=== PATIENT | male | born 1990 | race Caucasian/White ===

== ENCOUNTER 2017-12-12 00:40 | Inpatient (IN) | payer OTHER ==
[2017-12-12] MEDS ORDERED: Sodium Chloride 0.9% 1,000 ML IV STA (01:00)
[2017-12-12] MEDS ORDERED: Sodium Chloride 0.9% 10 ML Syringe FLUSH PRN (01:00)
[2017-12-12] MEDS ORDERED: Ondansetron 4 MG/2 ML SDV IVPUSH ONE (01:01)
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
[2017-12-12] MEDS ORDERED: HYDROmorphone 0.5 MG/0.5 ML SYRINGE IVPUSH ONE (03:48)
[2017-12-12] MEDS ORDERED: Levofloxacin/Dextrose 5%-Water 500 MG in Premix Bag 1 BAG IV ONE (04:15)
[2017-12-12] MEDS ORDERED: metroNIDAZOLE/Normal Saline 500 MG in Premix Bag 1 BAG IV ONE (04:16)
[2017-12-12] MEDS ORDERED: Sodium Chloride 0.9% 1,000 ML IV SCH (04:45)
[2017-12-12] MEDS ORDERED: hydrALAZINE 20 MG/ML SDV IVPUSH PRN (05:48)
[2017-12-12] MEDS ORDERED: Acetaminophen 325 MG Tab PO PRN (05:48)
[2017-12-12] MEDS ORDERED: Ondansetron 4 MG/2 ML SDV IVPUSH PRN (05:48)
[2017-12-12] MEDS ORDERED: Bisacodyl 5 MG Tab PO PRN (07:28)
[2017-12-12] MEDS ORDERED: Docusate Sodium 100 MG Cap PO PRN (07:28)
[2017-12-12] MEDS ORDERED: Ketorolac 30 MG/ML SDV IV PRN (07:28)
[2017-12-12] MEDS ORDERED: Polyethylene Glycol 3350 Powder 17 GM Packet PO PRN (07:28)
[2017-12-12] MEDS ORDERED: Magnesium Hydroxide 400 MG/5 ML Susp 30 ML Cup PO PRN (07:28)
--- NOTE | 2017-12-12 07:37 | CT ---
CT abdomen and pelvis Technique: Multiple axial sections were obtained from above the dome of the diaphragm inferiorly through the pubic symphysis. Intravenous and oral contrast was utilized. Delayed images were also obtained through the pelvis. Comparison: Prior CT abdomen and pelvis exam of 08/23/16. Findings: Dilated fluid-filled loops of mid and distal small bowel are seen. Areas of prominent wall thickening are seen within skip lesions within the small bowel. Terminal ileum appears within normal limits. There is some fecalized small bowel material within the distal ileum. Transition point of the small bowel dilatation is within the right lower abdomen. Visualized lung bases show nothing acute. Liver shows no focal abnormality. Spleen appears within normal limits. Adrenal glands show no nodule. Pancreas is within normal limits. Gallbladder contains no shadowing gallstones. Kidneys show symmetric contrast enhancement without hydronephrosis or mass. Aorta shows no aneurysmal dilatation. No retroperitoneal adenopathy is seen. No findings of appendicitis are seen. No pelvic mass or adenopathy is seen. Small amount of fluid seen within the pelvis most likely reactive from the small bowel process. Impression: 1. Findings compatible with distal small bowel obstruction with transition point within the right lower abdomen. Areas of bowel wall thickening seen within skip lesions within the small bowel. Findings slightly changed from previous CT exam. Bowel wall thickening could represent infectious enteritis although Crohn's disease is highly possible. 2. Small amount of fluid within the pelvis most likely reactive from the small bowel process. Diagnostic code #3 I agree with preliminary report from [facility], finalized at 12/12/17, 4:28 AM Central Time
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
[2017-12-12] MEDS ORDERED: Pantoprazole 40 MG Vial IVPUSH SCH (09:00)
[2017-12-12] MEDS ORDERED: predniSONE 20 MG Tab PO SCH (11:00)
[2017-12-12] MEDS: metroNIDAZOLE/Normal Saline 500 MG in Premix Bag 1 BAG IV SCH ×2 (12:47→20:32)
[2017-12-12] MEDS: methylPREDNISolone Sodium Succinate 40 MG/1 ML SDV IVPUSH SCH ×2 (16:00→20:30)
[2017-12-12] MEDS: Famotidine 20 MG/2 ML SDV IVPUSH SCH (20:31)
[2017-12-13] MEDS: methylPREDNISolone Sodium Succinate 40 MG/1 ML SDV IVPUSH SCH (03:03)
[2017-12-13] MEDS ORDERED: Levofloxacin/Dextrose 5%-Water 750 MG in Premix Bag 1 BAG IV SCH (04:30)
[2017-12-13] MEDS: metroNIDAZOLE/Normal Saline 500 MG in Premix Bag 1 BAG IV SCH (05:46)
[2017-12-13] MEDS: Famotidine 20 MG/2 ML SDV IVPUSH SCH (08:09)
[2017-12-13] MEDS ORDERED: predniSONE 20 MG Tab PO SCH (09:00)
--- NOTE | 2017-12-13 10:57 | PCM.DCSUM1 ---
Discharge Summary - Hospital Course HPI Initial Comments: The patient presents with periumbilical pain that started last night. He also has nausea but no vomiting. He has no dysuria or diarrhea. Over a year ago in August he was seen here and diagnosed with a small bowel obstruction. He was admitted to Dr Wiley and he did not have to have surgery. He has never had surgery before. He still has his appendix and gallbladder. He has no fever, chills, cough, chest pain or shortness of breath. The patient did have a bowel movement yesterday. - Discharge Data Discharge Date: 12/13/17 (ADMIT 12/12/17) Discharge Disposition: Home, Self-Care 01 Condition: Good - Discharge Diagnosis/Problem(s) (1) Abdominal pain SNOMED Code(s): 13991182 ICD Code: R10.9 - UNSPECIFIED ABDOMINAL PAIN Status: Acute Priority: High Current Visit: Yes Qualifiers: Abdominal location: periumbilical Qualified Code(s): R10.33 - Periumbilical pain (2) Enteritis SNOMED Code(s): 60912266 ICD Code: K52.9 - NONINFECTIVE GASTROENTERITIS AND COLITIS, UNSPECIFIED Status: Acute Priority: High Current Visit: Yes (3) Partial small bowel obstruction SNOMED Code(s): 619917223 ICD Code: K56.600 - PARTIAL INTESTINAL OBSTRUCTION, UNSPECIFIED TO CAUSE Status: Acute Priority: Medium Current Visit: Yes - Patient Summary/Data Operative Procedure(s) Performed: none Complications: none Consults: Consultations 12/12/17 09:47 Consult to Case Management [CONS] Routine Labs Pending at D/C: none Recommended Follow-up Testing/Procedures: F/u with PCP, Riaz Chawla, in 7-10 days. F/U with GI specialist for colonoscopy to r/o Inflammatory enteritis (IBD) vs. Infectious enteritis (viral) Planned Operative Procedure(s) after DC: none Hospital Course: I/P: Acute: Enteritis: Crohn's vs Inflammatory or Infectious enteritis -Risk factor: h/o Ileitis (08/23/16) -CT abdomen and pelvis: Severe enteritis, areas of bowel wall thickening seen within skip lesions within the small bowel -WBC 12.26-->11.57, Mg 1.7, CRP <0.2 -Levoquin, Flagyl started in ED--> D/C -IVF, NPO--> advance diet as tolerated -Pain management with Tylenol and Toradol -Nausea management with Zofran -Recommend GI specialist after D/C Partial SBO -Most likely 2/2 above -CT abdomen and pelvis: partial SBO with transition point in right lower quadrant -General surgeon Dr. Wiley consulted in the ED--> Surgery not recommended at this time -IVF, NPO--> advance diet as tolerated Chronic: none Plan: Transfered to Med-Surg He remains stable and continues to improve clinically Other orders as indicated above Routine AM labs Ambulated at tolerated DVT prophylaxis: MIKHAIL hose GI prophylaxis: Protonix Recommend seeing a GI specialist after D/C D/C today pending no problems with regular diet at lunch Code Status: Full code; New PCP Riaz Chawla Dominguez has recovered quite well. He had multiple tests done. So far all have been negative except for CT abdomen and pelvis: Severe enteritis, areas of bowel wall thickening seen within skip lesions within the small bowel and partial SBO with transition point in right lower quadrant. This has since resolved. He should follow-up with his primary care provider in 7-10 days. He also needs to follow up with GI specialist for a colonoscopy to r/o Infectious enteritis (viral) vs. Inflammatory enteritis (IBD). He was not discharged home on any new medications. He will be discharged home today. - Patient Instructions Diet: Usual Diet as Tolerated Activity: As Tolerated Driving: May Drive Today Showering/Bathing: May Shower Notify Provider of: Fever, Increased Pain, Nausea and/or Vomiting - Discharge Plan Home Medications: Home Meds . [No Known Home Meds] 12/12/17 [History] Patient Handouts: Small Bowel Obstruction, [id number], Abdominal Pain, Adult , [id number] Referrals: Riaz Regan MD [Physician] - - Discharge Summary/Plan Comment DC Time >30 min.: Yes (40) - General Info Date of Service: 12/13/17 Admission Dx/Problem (Free Text: Admission Diagnosis/Problem Admission Diagnosis/Problem Enteritis Subjective Update: In to see Dominguez today. He is lying in bed visiting with and 4 children. Overall he is doing quite well. He has no complaints. He has been sleeping well. Good appetite. Ambulating. Pain is controlled. No abdominal pain , distention, nausea, vomiting or diarrhea. He is able to pass ruy and have bowel movements. Urinating. No concerns from nursing. Will be DCd back to Home today. Functional Status: Reports: Pain Controlled, Tolerating Diet, Ambulating, Urinating - Review of Systems General: Reports: No Symptoms. Denies: Fever, Fatigue, Chills HEENT: Reports: No Symptoms Pulmonary: Reports: No Symptoms. Denies: Shortness of Breath, Pleuritic Chest Pain Cardiovascular: Reports: No Symptoms. Denies: Chest Pain, Palpitations Gastrointestinal: Reports: No Symptoms. Denies: Abdominal Pain, Constipation, Decreased Appetite, Diarrhea, Nausea, Vomiting Genitourinary: Reports: No Symptoms. Denies: Dysuria, Frequency, Burning, Pain , Urgency Musculoskeletal: Reports: No Symptoms Skin: Reports: No Symptoms Neurological: Reports: No Symptoms Psychiatric: Reports: No Symptoms - Patient Data Vitals - Most Recent: Last Vital Signs Temp 98.6 F 12/13/17 08:01 Pulse 73 12/13/17 08:01 Resp 16 12/13/17 08:01 BP 115/49 L 12/13/17 08:01 Pulse Ox 98 12/13/17 08:01 Weight - Most Recent: 179 lb 3.2 oz I&O - Last 24 hours: Intake & Output 12/12/17 12/13/17 12/13/17 22:59 06:59 14:59 Intake Total 340 800 240 Output Total 1175 1250 Balance -835 -450 240 Lab Results - Last 24 hrs: Laboratory Results - last 24 hr 12/13/17 12/13/17 Range/Units 05:24 05:26 WBC 11.57 H (4.23-9.07) K/mm3 RBC 5.11 (4.63-6.08) M/mm3 Hgb 15.8 (13.7-17.5) gm/L Hct 43.2 (40.1-51.0) % MCV 84.5 (79.0-92.2) fl MCH 30.9 (25.7-32.2) pg MCHC 36.6 H (32.2-35.5) g/dl RDW Std Deviation 36.3 (35.1-43.9) fL Plt Count 194 (163-337) K/mm3 MPV 9.8 (9.4-12.3) fl Neut % (Auto) 93.4 H (34.0-67.9) % Lymph % (Auto) 4.6 L (21.8-53.1) % Larue % (Auto) 1.8 L (5.3-12.2) % Eos % (Auto) 0 L (0.8-7.0) Baso % (Auto) 0.0 L (0.1-1.2) % Neut # (Auto) 10.81 H (1.78-5.38) K/mm3 Lymph # (Auto) 0.53 L (1.32-3.57) K/mm3 Larue # (Auto) 0.21 L (0.30-0.82) K/mm3 Eos # (Auto) 0.00 L (0.04-0.54) K/mm3 Baso # (Auto) 0.00 L (0.01-0.08) K/mm3 Manual Slide Review Abnormal smear Sodium 136 (136-145) mEq/L Potassium 4.1 (3.5-5.1) mEq/L Chloride 102 (98-107) mEq/L Carbon Dioxide 28 (21-32) mEq/L Anion Gap 10.1 (5-15) BUN 13 (7-18) mg/dL Creatinine 1.0 (0.7-1.3) mg/dL Est Cr Clr Drug Dosing 109.00 mL/min Estimated GFR (MDRD) > 60 (>60) mL/min BUN/Creatinine Ratio 13.0 L (14-18) Glucose 153 H (74-106) mg/dL Calcium 9.3 (8.5-10.1) mg/dL Magnesium 1.7 L (1.8-2.4) mg/dl Total Bilirubin 0.9 (0.2-1.0) mg/dL AST 15 (15-37) U/L ALT 31 (16-63) U/L Alkaline Phosphatase 69 (46-116) U/L C-Reactive Protein < 0.2 (<1.0) mg/dL Total Protein 7.1 (6.4-8.2) g/dl Albumin 3.8 (3.4-5.0) g/dl Globulin 3.3 gm/dL Albumin/Globulin Ratio 1.2 (1-2) Med Orders - Current: Current Medications Acetaminophen (Tylenol) 650 mg PO Q6H PRN PRN Reason: Pain Bisacodyl (Dulcolax) 5 mg PO DAILY PRN PRN Reason: Constipation Docusate Sodium (Colace) 100 mg PO BID PRN PRN Reason: Constipation Famotidine (Pepcid) 20 mg IVPUSH BID [facility] Last Admin: 12/13/17 08:09 Dose: 20 mg Hydralazine HCl (Apresoline) 20 mg IVPUSH Q6H PRN PRN Reason: Hypertension Metronidazole 500 mg/ Premix 100 mls @ 100 mls/hr IV Q8H [facility] Last Admin: 12/13/17 05:46 Dose: 100 mls/hr Ketorolac Tromethamine (Toradol) 30 mg IV Q6H PRN PRN Reason: Pain (moderate 4-6) Last Admin: 12/12/17 08:38 Dose: 30 mg Magnesium Hydroxide (Milk Of Magnesia) 30 ml PO Q12H PRN PRN Reason: Constipation Ondansetron HCl (Zofran) 4 mg IVPUSH Q8H PRN PRN Reason: Nausea Polyethylene Glycol (Miralax) 17 gm PO DAILY PRN PRN Reason: Constipation Prednisone (Prednisone) 60 mg PO DAILY [facility] Last Admin: 12/13/17 08:08 Dose: 60 mg Senna/Docusate Sodium (Senna Plus) 1 tab PO BID PRN PRN Reason: Constipation Sodium Chloride (Saline Flush) 10 ml FLUSH ASDIRECTED PRN PRN Reason: Keep Vein Open Last Admin: 12/12/17 01:12 Dose: 10 ml Discontinued Medications Hydromorphone HCl (Dilaudid) 0.5 mg IVPUSH ONETIME ONE Stop: 12/12/17 03:49 Last Admin: 12/12/17 03:54 Dose: 0.5 mg Sodium Chloride (Normal Saline) 1,000 mls @ 1,000 mls/hr IV .BOLUS STA Stop: 12/12/17 01:59 Last Admin: 12/12/17 01:08 Dose: 1,000 mls/hr Levofloxacin/Dextrose 500 mg/ (Premix) 100 mls @ 100 mls/hr IV ONETIME ONE Stop: 12/12/17 05:14 Last Admin: 12/12/17 04:22 Dose: 100 mls/hr Metronidazole 500 mg/ Premix 100 mls @ 100 mls/hr IV ONETIME ONE Stop: 12/12/17 05:15 Last Admin: 12/12/17 05:21 Dose: 100 mls/hr Sodium Chloride (Normal Saline) 1,000 mls @ 150 mls/hr IV ASDIRECTED [facility] Levofloxacin/Dextrose 750 mg/ (Premix) 150 mls @ 100 mls/hr IV Q24H [facility] Methylprednisolone Sodium Succinate (Solu-Medrol) 40 mg IVPUSH Q6H [facility] Stop: 12/13/17 03:01 Last Admin: 12/13/17 03:03 Dose: 40 mg Ondansetron HCl (Zofran) 4 mg IVPUSH ONETIME ONE Stop: 12/12/17 01:02 Last Admin: 12/12/17 01:09 Dose: 4 mg Pantoprazole Sodium (Protonix Iv) 40 mg IVPUSH DAILY [facility] Last Admin: 12/12/17 09:53 Dose: 40 mg Prednisone (Prednisone) 60 mg PO DAILY [facility] Stop: 12/14/17 09:01 Last Admin: 12/12/17 11:59 Dose: 60 mg - Exam Quality Assessment: Reports: DVT Prophylaxis General: Reports: Alert, Oriented, Cooperative, No Acute Distress HEENT: Reports: Pupils Equal, Pupils Reactive, EOMI, Mucous Membr. Moist/[place]: Reports: Supple Lungs: Reports: Clear to Auscultation, Normal Respiratory Effort Cardiovascular: Reports: Regular Rate, Regular Rhythm GI/Abdominal Exam: Normal Bowel Sounds, Soft, Non-Tender, No Organomegaly, No Distention, No Abnormal Bruit, No Mass, Pelvis Stable (Male) Exam: Deferred Rectal (Males) Exam: Deferred Back Exam: Reports: Normal Inspection, Full Range of Motion Extremities: Normal Inspection, Normal Range of Motion, Non-Tender, No Pedal Edema, Normal Capillary Refill Skin: Reports: Warm, Dry, Intact Neurological: Reports: No New Focal Deficit Psy/Mental Status: Reports: Alert, Normal Affect, Normal Mood
[2017-12-13 11:33] VITALS: BP 120/68
== END 2017-12-13 12:46 | disposition home or self-care (01) | DRG 389 ==
LOC: JD.ED 00:40 → JD.MS 05:02
PROVIDERS: ADMIT Internal Medicine Cardiovascular Disease; ATTEND Internal Medicine Cardiovascular Disease
DX: K56.600 Partial intestinal obstruction, unspecified as to cause (principal); K50.90 Crohn's disease, unspecified, without complications; A09 Infectious gastroenteritis and colitis, unspecified
CPT/HCPCS: 36415; 74177; 74177-26; 80053; 81001; 83690; 83735; 85025; 86140; 96361; 96365; 96375; 99285-25; A9270-GY; C9113; J1170; J1885; J1956; J2405; J2920; J7040; J7050

== ENCOUNTER 2025-06-28 10:41 | Inpatient (IN) | payer BC, OTHER, SELFPAY ==
[2025-06-28] MEDS ORDERED: Sodium Chloride 0.9% 10 ML Syringe FLUSH PRN (11:17)
[2025-06-28 11:31] LABS: BASOPHILS ABSOLUTE AUTO 0.1 K/mm3 (0.0-0.2); BASOPHILS PERCENT AUTO 0.4 % (0.0-1.0); EOSINOPHILS ABSOLUTE AUTO 0.1 K/mm3 (0.0-0.4); EOSINOPHILS PERCENT AUTO 0.4 % (0.0-6.0); IMMATURE GRAN ABSOLUTE AUTO 0.06 K/mm3 (0.00-0.05); IMMATURE GRAN PERCENT AUTO 0.4 % (0.0-0.4); LYMPHOCYTES ABSOLUTE AUTO 1.4 K/mm3 (1.0-4.8); LYMPHOCYTES PERCENT AUTO 8.3 % (24.0-44.0); MEAN PLATELET VOLUME 9.8 fl (9.4-12.4); MONOCYTES ABSOLUTE AUTO 1.0 K/mm3 (0.0-0.8); MONOCYTES PERCENT AUTO 5.9 % (0.0-8.0); NEUTROPHILS ABSOLUTE AUTO 13.8 K/mm3 (1.8-7.7); NEUTROPHILS PERCENT AUTO 84.6 % (41.0-71.0); NRBC ABSOLUTE 0.00 (0.00-0.02); NRBC PERCENT 0.0 % (0.0-0.2); PLATELET COUNT,PLT 248 K/mm3 (150-400); RED BLOOD CELL COUNT 6.15 M/mm3 (4.52-5.90); WHITE BLOOD CELL COUNT,WBC 16.35 K/mm3 (3.9-11.3)
[2025-06-28] MEDS: Ondansetron 4 MG/2 ML SDV IVPUSH ONE (11:31)
[2025-06-28 12:10] LABS: A/G RATIO 1.2 (1-2); ALANINE AMINOTRANSFERASE,ALT 49.0 U/L (16-63); ASPARTATE AMNIOTRANSFERASE,AST 26.0 U/L (15-37); BILIRUBIN TOTAL 0.9 mg/dL (0.2-1.0); BLOOD UREA NITROGEN,BUN 15.0 mg/dL (7-18); CARBON DIOXIDE,CO2 29.0 mEq/L (21-32); CHLORIDE,CL 100.0 mEq/L (98-107); CREATININE 1.1 mg/dL (0.7-1.3); EST CRCL DRUG DOSING (CG) 91.95 mL/min; ESTIMATED GFR 89.0 mL/min (>60); GLUCOSE RANDOM 136.0 mg/dL (70-99); POTASSIUM,K 4.3 mEq/L (3.5-5.1); PROTEIN TOTAL,TP 8.3 g/dl (6.4-8.2); SODIUM,NA 139.0 mEq/L (136-145)
[2025-06-28 14:06] LABS: APPEARANCE,URINE SLT CLOUDY (Clear); GLUCOSE,URINE NEGATIVE (Negative); OCCULT BLOOD,URINE NEGATIVE (Negative)
[2025-06-28 14:25] LABS: EPITHELIAL CELLS,URINE 0-5 /hpf (0-5)
[2025-06-28] MEDS: Iopamidol 612 MG/ML 100 ML Bottle IVPUSH ONE (14:30)
[2025-06-28] MEDS: Heparin Sodium 5,000 Units/ML Vial SUBCUT SCH (17:20)
[2025-06-28] MEDS: Ondansetron 4 MG/2 ML SDV IV PRN (17:59)
[2025-06-29 05:55] LABS: MEAN PLATELET VOLUME 9.6 fl (9.4-12.4); NRBC ABSOLUTE 0.00 (0.00-0.02); NRBC PERCENT 0.0 % (0.0-0.2); RED BLOOD CELL COUNT 5.03 M/mm3 (4.52-5.90); WHITE BLOOD CELL COUNT,WBC 8.80 K/mm3 (3.9-11.3)
[2025-06-29 06:01] LABS: PLATELET COUNT,PLT 172 K/mm3 (150-400)
[2025-06-29 06:22] LABS: A/G RATIO 1.0 (1-2); ALANINE AMINOTRANSFERASE,ALT 29.0 U/L (16-63); ASPARTATE AMNIOTRANSFERASE,AST 16.0 U/L (15-37); BILIRUBIN TOTAL 1.0 mg/dL (0.2-1.0); BLOOD UREA NITROGEN,BUN 11.0 mg/dL (7-18); CARBON DIOXIDE,CO2 31.0 mEq/L (21-32); CHLORIDE,CL 105.0 mEq/L (98-107); CREATININE 1.2 mg/dL (0.7-1.3); EST CRCL DRUG DOSING (CG) 84.28 mL/min; ESTIMATED GFR 80.0 mL/min (>60); GLUCOSE RANDOM 93.0 mg/dL (70-99); POTASSIUM,K 3.9 mEq/L (3.5-5.1); PROTEIN TOTAL,TP 6.0 g/dl (6.4-8.2); SODIUM,NA 141.0 mEq/L (136-145)
[2025-06-29 13:49] VITALS: BP 121/82; PULSE 78
== END 2025-06-29 16:18 | disposition home or self-care (01) | DRG 245 ==
LOC: JD.ED 10:41 → JD.MS 16:31
PROVIDERS: ADMIT Family Medicine; ATTEND Family Medicine
DX: K50.912 Crohn's disease, unspecified, with intestinal obstruction (principal); Z79.1 Long term (current) use of non-steroidal anti-inflammatories (NSAID); Z79.899 Other long term (current) drug therapy; Z98.890 Other specified postprocedural states
CPT/HCPCS: 36415; 74177; 74177-26; 80053; 81001; 83690; 83735; 85025; 85027; 86140; 96361; 96374; 96375; 96376; 99285; 99285-25; J1171; J1644; J2270; J2405; J2543; J2765; J7030; Q9967